=== PATIENT | male | born 1965 | race Caucasian/White ===

== ENCOUNTER → 2016-10-03 | Outpatient (CLI) | payer BC ==
[2016-10-03 18:13] LABS: ALT/SGPT 30 U/L (12-78); BLOOD UREA NITROGEN 22 mg/dl (7-18); BUN/CREATININE RATIO 18.2 (10-20); CALCIUM 9.1 mg/dl (8.5-10.1); CARBON DIOXIDE 28 mmol/L (21-32); CHLORIDE 101 mmol/L (98-107); GLUCOSE 108 mg/dl (70-99); SODIUM 138 mmol/L (136-145)
[2016-10-03 18:16] LABS: ALB/GLOB RATIO 1.3 (0.9-2); ALKALINE PHOSPHATASE 69 U/L (45-117); AST/SGOT 15 U/L (15-37)
[2016-10-03 18:27] LABS: BASO % 0.2 %; BASO ABS # 0.02 K/uL (0-0.2); COMPLETE YES; EOS % 4.3 %; HEMATOCRIT 41.7 % (42-52); IG% 0.1 %; MEAN CELL VOLUME 88.7 fL (80-100); MEAN CORPUSCULAR HEMOGLOBIN 31.1 pg (25-34); MEAN PLATELET VOLUME 11.3 fL (7.4-10.4); MONO % 9.3 %; NEUT % 75.1 %; PLATELET COUNT 186 K/uL (130-400); WHITE BLOOD COUNT 8.15 K/uL (4.8-10.8)
[2016-10-04 06:10] LABS: ESTIMATED AVERAGE GLUCOSE 103 mg/dl; HA1C FLAG Normal (Normal)
== END | disposition home or self-care (01) ==
LOC: C.LABMFLN 07:55
PROVIDERS: ATTEND Family Medicine
DX: Z12.5 Encounter for screening for malignant neoplasm of prostate (principal); E11.9 Type 2 diabetes mellitus without complications

== ENCOUNTER → 2017-04-17 | Outpatient (CLI) | payer BC ==
[2017-04-17 13:34] LABS: CHOLESTEROL/HDL RATIO 3.5
[2017-04-17 13:51] LABS: ESTIMATED AVERAGE GLUCOSE 111 mg/dl; HA1C FLAG Normal (Normal)
[2017-04-17 14:22] LABS: RATIO 5.5 mcg/mg (0-30.0)
== END | disposition home or self-care (01) ==
LOC: C.LABMFLN 10:39
PROVIDERS: ATTEND Family Medicine
DX: E11.9 Type 2 diabetes mellitus without complications (principal); E78.5 Hyperlipidemia, unspecified

== ENCOUNTER → 2017-10-20 | Outpatient (CLI) | payer BC ==
[2017-10-20 17:54] LABS: BASO % 0.2 %; BASO ABS # 0.01 K/uL (0-0.2); EOS % 3.9 %; HEMATOCRIT 42.4 % (42-52); HEMOGLOBIN 15.1 g/dL (14.0-18.0); IG# 0.02 K/uL (0.00-0.02); LYMPH % 24.7 %; LYMPH ABS # 1.27 K/uL (1.2-3.4); MEAN CELL VOLUME 86.7 fL (80-100); MEAN CORPUSCULAR HEMOGLOBIN 30.9 pg (25-34); MEAN CORPUSCULAR HGB CONC 35.6 g/dl (32-36); MEAN PLATELET VOLUME 10.5 fL (7.4-10.4); MONO % 12.5 %; MONO ABS # 0.64 K/uL (0.11-0.59); NEUT % 58.3 %; PLATELET COUNT 205 K/uL (130-400); RED CELL DISTRIBUTION WIDTH SD 41.4 fL (36.4-46.3); WHITE BLOOD COUNT 5.14 K/uL (4.8-10.8)
[2017-10-20 18:21] LABS: ALT/SGPT 30 U/L (12-78); BLOOD UREA NITROGEN 14 mg/dl (7-18); CALCIUM 9.2 mg/dl (8.5-10.1); CARBON DIOXIDE 29 mmol/L (21-32); CREATININE 1.03 mg/dl (0.60-1.40); GLUCOSE 118 mg/dl (70-99); POTASSIUM 3.5 mmol/L (3.5-5.1); SODIUM 137 mmol/L (136-145)
[2017-10-20 18:24] LABS: ALKALINE PHOSPHATASE 62 U/L (45-117); AST/SGOT 14 U/L (15-37); TOTAL PROTEIN 6.9 gm/dl (6.4-8.2)
[2017-10-21 06:32] LABS: HEMOGLOBIN A1C 5.8 % (4.5-5.6)
== END | disposition home or self-care (01) ==
LOC: C.LABMFLN 13:31
PROVIDERS: ATTEND Family Medicine
DX: E11.9 Type 2 diabetes mellitus without complications (principal)